=== PATIENT | female | born 1995 ===

== ENCOUNTER 2023-10-03 16:12 | Outpatient (REF) | payer SELFPAY ==
--- NOTE | 2023-10-03 14:30 | PAPFT_PTH ---
PATIENT: Christie Silva LOC: [facility]#:[id number] AGE/SX: 27/F ROOM: RE10/03/[address]: ESTELA: 1995 BED: DIS: 10/03/2023 SPEC #: [id number] RECD: 10/04/23 13:21 STATUS: MAL DEJESUS #: [id number] VENKATESH: 10/03/23 14:[address]: Yvonne Caldera DEPT: [facility] Cytology RECD BY: Hanny Swanson ENTERED: 10/04/23 13:21 SP TYPE: PAPFT OT DR: Unknown,Unknown Tissues: 1 - CX/ENDOCX FOR PAP SMEARS Procedures: PAP THIN PREP/[facility] Screening Comments: [id number]
== END 2023-10-03 16:13 | disposition home or self-care (01) ==
LOC: NCHCN 16:12
PROVIDERS: Visit Provider Family Medicine
DX: Z12.4 Encounter for screening for malignant neoplasm of cervix (principal)
CPT/HCPCS: 88142